=== PATIENT | female | born 1965 | race American Indian/Alaskan Native ===

== ENCOUNTER 2022-03-05 22:57 | Inpatient (IN) | payer MEDICARE, OTHER ==
[2022-03-06] MEDS ORDERED: SODIUM CHLORIDE 0.9% 1000 ML 1,000 ML IV ONE (00:50)
[2022-03-06] MEDS ORDERED: methylPREDNISolone Sod Suc 1,000 MG in SODIUM CHLORIDE 0.9% 250ML 250 ML IV ONE (00:51)
--- NOTE | 2022-03-06 00:57 | Emergency Department Report ---
ED General Adult HPI - General Chief complaint: Medical Clearance Stated complaint: SYNCOPE Time Seen by Provider: 03/06/22 00:41 Source: EMS Mode of arrival: Stretcher Limitations: No Limitations - History of Present Illness Initial comments: 56 yo F with h/o multiple sclerosis brought in by friends and spouse with generalized weakness that started after exertion. Patient [place] [employer] [place] [employer] all day today with a lot of crowds. Patient according to friends and not eating anything today. She was having generalized bilateral leg weakness. No fever or chills reported. According to patient's spouse whenever she has multiple sclerosis flareup she refused to communicate which is exactly what patient is presenting with at this point. No other modifying or associated factors reported. - Related Data Allergies Allergy/AdvReac Type Severity Reaction Status Date / Time Unable to Assess Allergy Verified 03/06/22 00:53 ED Review of Systems ROS: Stated complaint: SYNCOPE Other details as noted in HPI Comment: All other systems reviewed and negative Constitutional: weakness Cardiovascular: syncope ED Past Medical Hx - Past Medical History Previous Medical History?: Yes Additional medical history: MULTIPLE SCLEROSIS - Surgical History Past Surgical History?: No - Social History Smoking Status: Unknown if ever smoked ED Physical Exam - General Limitations: No Limitations General appearance: alert, in no apparent distress - Head Head exam: Present: atraumatic, normal inspection - Eye Eye exam: Present: normal appearance Pupils: Present: normal accommodation - ENT ENT exam: Present: normal exam, normal orophraynx, mucous membranes dry - Neck Neck exam: Present: normal inspection, full ROM. Absent: tenderness - Respiratory Respiratory exam: Present: normal lung sounds bilaterally. Absent: respiratory distress, accessory muscle use - Cardiovascular Cardiovascular Exam: Present: regular rate, normal rhythm, normal heart sounds - GI/Abdominal GI/Abdominal exam: Present: soft, normal bowel sounds. Absent: distended, tenderness - Extremities Exam Extremities exam: Present: normal inspection, normal capillary refill. Absent: tenderness, pedal edema - Back Exam Back exam: Absent: tenderness - Neurological Exam Neurological exam: Present: alert, oriented X3 - Psychiatric Psychiatric exam: Present: normal affect, normal mood - Skin Skin exam: Present: warm, normal color ED Course Vital Signs 03/05/22 23:43 Temperature 98.1 F Pulse Rate 71 Respiratory 16 Rate Blood Pressure 140/91 O2 Sat by Pulse 100 Oximetry ED Medical Decision Making - Lab Data Result diagrams: 03/06/22 01:47 03/06/22 01:47 - Medical Decision Making Here with generalized weakness--with history of multiple sclerosis we will go ahead and order routine labs including CBC, CMP, urinalysis, urine drug screen and thyroid panel for any electrolyte derangement or infectious process In the meantime while waiting for the above labs we will go ahead and hydrate with IV fluids normal saline 1 L bolus and 1 g of Medrol steroids to start treating multiple sclerosis flareup. Lab reviewed with no sign of infectious process-- but since this patient is sym ptomatic such as not been able to walk-- and might needs several days of high steroid treatment admission is considered. Dr Birmingham consulted who accept pt for further evaluation and treatment Critical care attestation.: If time is entered above; I have spent that time in minutes in the direct care of this critically ill patient, excluding procedure time. ED Disposition Clinical Impression: Generalized muscle weakness, Multiple sclerosis Disposition: ADMITTED INPATIENT Is pt being admited?: Yes Does the pt Need Aspirin: No Condition: Stable Referrals: PRIMARY CARE, [Primary Care Provider] - 3-5 Days Time of Disposition: 03:20
[2022-03-06 02:23] LABS: Basophils % (Auto) 0.4 % (0.0-1.8); Eosinophils # (Auto) 0.2 K/mm3 (0.0-0.4); Eosinophils % (Auto) 4.7 % (0.0-4.3); Hematocrit 36.8 % (30.3-42.9); Hemoglobin 11.9 gm/dl (10.1-14.3); Lymphocytes # (Auto) 1.7 K/mm3 (1.2-5.4); Lymphocytes % (Auto) 31.9 % (13.4-35.0); Mean Corpuscular HGB Conc 32 % (30-34); Mean Corpuscular Volume 88 fl (79-97); Monocytes # (Auto) 0.3 K/mm3 (0.0-0.8); Monocytes % (Auto) 5.9 % (0.0-7.3); Platelet Count 193 K/mm3 (140-440); Red Blood Count 4.18 M/mm3 (3.65-5.03); Red Cell Distribution Width 12.6 % (13.2-15.2)
[2022-03-06 02:29] LABS: INR 0.9 (0.87-1.13)
[2022-03-06 02:30] LABS: Partial Thromboplastin Time 31.2 Sec. (24.2-36.6)
[2022-03-06 02:41] LABS: Alanine Aminotransferase 11 units/L (7-56); Albumin 3.7 g/dL (3.9-5); Blood Urea Nitrogen 8 mg/dL (7-17); Calcium 9.1 mg/dL (8.4-10.2); Hemolysis Index 3
[2022-03-06 02:51] LABS: Free T4 (Free Thyroxine) 1.14 ng/dL (0.76-1.46)
[2022-03-06 02:54] LABS: BUN/Creatinine Ratio 13
[2022-03-06] MEDS ORDERED: ACETAMINOPHEN 325 MG TAB PO PRN ×2 (03:21→05:32)
[2022-03-06] MEDS ORDERED: ONDANSETRON 4 MG/2 ML INJ IV PRN ×2 (03:21→05:32)
[2022-03-06] MEDS ORDERED: MORPHINE 2 MG/1 ML INJ IV PRN ×2 (03:21→05:32)
[2022-03-06] MEDS ORDERED: MORPHINE 4 MG/1 ML INJ IV PRN (05:32)
[2022-03-06] MEDS ORDERED: ALBUTEROL 2.5 MG/3 ML NEBU IH PRN (05:32)
--- NOTE | 2022-03-06 05:38 | History and Physical Report ---
History of Present Illness Date of examination: 03/06/22 Date of admission: 03/06/22 03:21 Chief complaint: Generalized muscle weakness History of present illness: 56 yo F with h/o multiple sclerosis brought in by friends and spouse with generalized weakness that started after exertion. Patient was [place] [employer] [place] [employer] [place] [employer] all day today with a lot of crowds. Patient according to friends and not eating anything today. She was having generalized bilateral leg weakness. No fever or chills reported. According to patient's spouse whenever she has multiple sclerosis flareup she refused to communicate which is exactly what patient is presenting with at this point. No other modifying or associated factors reported. Lab reviewed with no sign of infectious process-- but since this patient is symptomatic such as not been able to walk-- and might needs several days of high steroid treatment. Giving patient 1 L of fluid bolus and 1 g of Medrol steroid. Neurology evaluation for further treatment. Past History Past Medical History: other (Multiple sclerosis) Past Surgical History: No surgical history Social history: no significant social history Family history: no significant family history Medications and Allergies Allergies Allergy/AdvReac Type Severity Reaction Status Date / Time Unable to Assess Allergy Verified 03/06/22 00:53 Active Meds: Active Medications Acetaminophen (Acetaminophen 325 Mg Tab) 650 mg PO Q4H PRN PRN Reason: Pain MILD(1-3)/Fever >100.5/ARREGUIN Morphine Sulfate (Morphine 2 Mg/1 Ml Inj) 2 mg IV Q4H PRN PRN Reason: Pain, Moderate (4-6) Ondansetron HCl (Ondansetron 4 Mg/2 Ml Inj) 4 mg IV Q8H PRN PRN Reason: Nausea And Vomiting Sodium Chloride (Sodium Chloride 0.9% 10 Ml Flush Syringe) 10 ml IV BID ENRRIQUE Sodium Chloride (Sodium Chloride 0.9% 10 Ml Flush Syringe) 10 ml IV PRN PRN PRN Reason: LINE FLUSH Review of Systems All systems: negative Constitutional: fatigue, weakness, malaise, other (Syncope) Exam - Constitutional Vitals: Temp Pulse Resp BP Pulse Ox 98.1 F 71 16 140/91 100 03/05/22 23:43 03/05/22 23:43 03/05/22 23:43 03/05/22 23:43 03/05/22 23:43 General appearance: Present: no acute distress, well-nourished - EENT Eyes: Present: PERRL ENT: hearing intact, clear oral mucosa - Neck Neck: Present: supple, normal ROM - Respiratory Respiratory effort: normal Respiratory: bilateral: CTA - Cardiovascular Heart Sounds: Present: S1 & S2. Absent: rub, click - Extremities Extremities: pulses symmetrical, No edema Peripheral Pulses: within normal limits - Abdominal General gastrointestinal: Present: soft, non-tender, non-distended, normal bowel sounds Female genitourinary: Present: normal - Integumentary Integumentary: Present: clear, warm, dry - Musculoskeletal Musculoskeletal: gait normal, strength equal bilaterally - Psychiatric Psychiatric: appropriate mood/affect, intact judgment & insight - Neurologic Neurologic: CNII-XII intact, moves all extremities Results - Labs CBC & Chem 7: 03/06/22 01:47 03/06/22 01:47 Labs: Laboratory Last Values WBC 5.3 K/mm3 (4.5-11.0) 03/06/22 01:47 RBC 4.18 M/mm3 (3.65-5.03) 03/06/22 01:47 Hgb 11.9 gm/dl (10.1-14.3) 03/06/22 01:47 Hct 36.8 % (30.3-42.9) 03/06/22 01:47 MCV 88 fl (79-97) 03/06/22 01:47 MCH 28 pg (28-32) 03/06/22 01:47 MCHC 32 % (30-34) 03/06/22 01:47 RDW 12.6 % (13.2-15.2) L 03/06/22 01:47 Plt Count 193 K/mm3 (140-440) 03/06/22 01:47 Lymph % (Auto) 31.9 % (13.4-35.0) 03/06/22 01:47 Pitt % (Auto) 5.9 % (0.0-7.3) 03/06/22 01:47 Eos % (Auto) 4.7 % (0.0-4.3) H 03/06/22 01:47 Baso % (Auto) 0.4 % (0.0-1.8) 03/06/22 01:47 Lymph # (Auto) 1.7 K/mm3 (1.2-5.4) 03/06/22 01:47 Pitt # (Auto) 0.3 K/mm3 (0.0-0.8) 03/06/22 01:47 Eos # (Auto) 0.2 K/mm3 (0.0-0.4) 03/06/22 01:47 Baso # (Auto) 0.0 K/mm3 (0.0-0.1) 03/06/22 01:47 Seg Neutrophils % 57.1 % (40.0-70.0) 03/06/22 01:47 Seg Neutrophils # 3.0 K/mm3 (1.8-7.7) 03/06/22 01:47 PT 13.4 Sec. (12.2-14.9) 03/06/22 01:47 INR 0.90 (0.87-1.13) 03/06/22 01:47 APTT 31.2 Sec. (24.2-36.6) 03/06/22 01:47 Sodium 145 mmol/L (137-145) 03/06/22 01:47 Potassium 3.5 mmol/L (3.6-5.0) L 03/06/22 01:47 Chloride 107.7 mmol/L (98-107) H 03/06/22 01:47 Carbon Dioxide 26 mmol/L (22-30) 03/06/22 01:47 Anion Gap 15 mmol/L 03/06/22 01:47 BUN 8 mg/dL (7-17) 03/06/22 01:47 Creatinine 0.6 mg/dL (0.6-1.2) 03/06/22 01:47 Estimated GFR > 60 ml/min 03/06/22 01:47 BUN/Creatinine Ratio 13 % 03/06/22 01:47 Glucose 91 mg/dL (65-100) 03/06/22 01:47 Calcium 9.1 mg/dL (8.4-10.2) 03/06/22 01:47 Total Bilirubin < 0.20 mg/dL (0.1-1.2) 03/06/22 01:47 AST 14 units/L (5-40) 03/06/22 01:47 ALT 11 units/L (7-56) 03/06/22 01:47 Alkaline Phosphatase 92 units/L (35-129) 03/06/22 01:47 NT-Pro-B Natriuret Pep 56.55 pg/mL (0-900) 03/06/22 01:47 Total Protein 5.5 g/dL (6.3-8.2) L 03/06/22 01:47 Albumin 3.7 g/dL (3.9-5) L 03/06/22 01:47 Albumin/Globulin Ratio 2.1 % 03/06/22 01:47 Lipase 31 units/L (13-60) 03/06/22 01:47 TSH 1.250 mlU/mL (0.270-4.200) 03/06/22 01:47 Free T4 1.14 ng/dL (0.76-1.46) 03/06/22 01:47 Assessment and Plan VTE prophylaxis?: Mechanical Plan of care discussed with patient/family: Yes - Patient Problems (1) Multiple sclerosis Current Visit: Yes Status: Acute Plan to address problem: Admit the patient to the medical floor. Cardiac diet. Normal saline at the rate of 100 cc/h. Patient is given 1 g of Medrol steroid. Neurology evaluation for further evaluation and treatment. (2) Generalized muscle weakness Current Visit: Yes Status: Acute Plan to address problem: Normal saline at the rate of 100 cc/h. Patient is given 1 g of Medrol steroid. Neurology evaluation for further evaluation and treatment. (3) DVT prophylaxis Current Visit: Yes Status: Acute Plan to address problem: SCD for DVT prophylaxis. Pepcid 20 mg p.o. twice daily for GI prophylaxis. Patient is a full code
--- NOTE | 2022-03-06 08:57 | Consultation ---
History of Present Illness Consult date: 03/06/22 Reason for Consult: MS Flare Chief complaint: Weakness History of present illness: 56 yo right-handed female with MS (diagnosed since 2008; currently not on DMT) presents with her typical MS flare of generalized weakness with "slowing down" of her cognitive skills. Triggered by a long walk and a day at the "conference" yesterday. She states that she feels tired everyday and has to go to bed by 6 pm. She cannot think of any triggers per se. Past History Past Medical History: other (Multiple sclerosis) Past Surgical History: No surgical history Social history: no significant social history Family history: no significant family history Medications and Allergies Allergies Allergy/AdvReac Type Severity Reaction Status Date / Time Unable to Assess Allergy Verified 03/06/22 00:53 Active Meds: Active Medications Acetaminophen (Acetaminophen 325 Mg Tab) 650 mg PO Q4H PRN PRN Reason: Pain MILD(1-3)/Fever >100.5/ARREGUIN Albuterol (Albuterol 2.5 Mg/3 Ml Nebu) 2.5 mg IH Q4HRT PRN PRN Reason: Shortness Of Breath Albuterol/Ipratropium (Ipratropium/Albuterol Sulfate 3 Ml Ampul.Neb) 1 ampul IH Q6HRT ENRRIQUE Famotidine (Famotidine 20 Mg Tab) 20 mg PO BID ENRRIQUE Methylprednisolone Sodium Succinate 1,000 mg/ Sodium Chloride 250 mls @ 250 mls/hr IV Q24H [facility] Stop: 03/10/22 09:59 Morphine Sulfate (Morphine 2 Mg/1 Ml Inj) 2 mg IV Q4H PRN PRN Reason: Pain, Moderate (4-6) Morphine Sulfate (Morphine 4 Mg/1 Ml Inj) 4 mg IV Q4H PRN PRN Reason: Pain , Severe (7-10) Ondansetron HCl (Ondansetron 4 Mg/2 Ml Inj) 4 mg IV Q8H PRN PRN Reason: Nausea And Vomiting Sodium Chloride (Sodium Chloride 0.9% 10 Ml Flush Syringe) 10 ml IV BID ENRRIQUE Sodium Chloride (Sodium Chloride 0.9% 10 Ml Flush Syringe) 10 ml IV PRN PRN PRN Reason: LINE FLUSH Review of Systems All systems: negative (as per hpi;) Physical Examination - Vital Signs Vital Signs: Vital Signs Temp Pulse Resp BP Pulse Ox 98.1 F 71 16 140/91 100 03/05/22 23:43 03/05/22 23:43 03/05/22 23:43 03/05/22 23:43 03/05/22 23:43 - Physical Exam Narrative exam: Gen: nad, well-nourished; Head: normocephalic; Eyes: no gaze deviation; no ptosis; ENT: normal vocalization; CVS: warm and well-perfused; Pulm: normal work of breathing; GI: appears non-distended; Ext: no cyanosis appreciated at distal extremities; Skin: no acute rash at distal extremities; Heme: no pathologic ecchymosis appreciated at distal extremities; Neuro: alert, oriented to name, age, month, year, surroundings, no dysarthria, no aphasia, mild psychomotor delay; CN 2 - PERRL, visual david grossly intact, CN 3, 4, 6 - EOMI, CN 5 - facial sensation decreased on the left to light touch, CN 7 - facial movement symmetric, CN 8 - hearing grossly intact, CN 9, 10 - uvula midline, CN 11 symmetric shoulder movement, CN 12 - tongue midline; Motor - bilateral senior games technician 3+/5 strength; at least 4-/5 at aleft and at least 4+/5 at right exts; Sensory - light touch decreased at left arm/leg, Cerebellar - fnf /hts intact, Gait - deferred secondary to fall risk; Results - Laboratory Findings CBC and BMP: 03/06/22 01:47 03/06/22 01:47 Abnormal Lab Findings: Abnormal Labs 03/06/22 03/06/22 01:47 01:47 RDW 12.6 L Eos % (Auto) 4.7 H Potassium 3.5 L Chloride 107.7 H Total Protein 5.5 L Albumin 3.7 L Assessment and Plan 56 yo right-handed female with MS (diagnosed since 2008; currently not on DMT) presents with her typical MS flare of generalized weakness with "slowing down" of her cognitive skills. 1. MS Flare - Solumedrol 250 mg iv q6 x 20 doses total; gi prophylaxis; accuc hecks w/ SSI; mri brain w/ wo contrast; mri c/t spine w/ wo contrast; outpatient f/u with neurology. 2. Left-sided Numbness - pt/ot evaluation/monitoring. 3. Bilateral Greens Keeper Weakness / Paraparesis - MRI C/T Spine w/ wo contrast; pt/ot evaluation / monitoring. 4. Cognitive Slowing / Psychomotor Delay - cognitive therapy via ST. Bala Webster MD Neurology [id number]
[2022-03-06] MEDS: FAMOTIDINE 20 MG TAB PO SCH ×2 (10:20→23:40)
--- NOTE | 2022-03-06 17:45 | Event Note ---
Date: 03/06/22 Patient was evaluated this morning, she was found to be hemodynamically stable. #Multiple sclerosis exacerbation Unremarkable CT head noncontrast. Pending MRI brain, MRI cervical and thoracic spine. Continue IV Solu-Medrol 1 g daily x7 days (or until patient returns back to baseline). Neurology consulted; appreciate recs. Physical therapy and Occupational Therapy consulted; pending recs Continue to monitor. #Mild routine caloric malnutrition Albumin 3.7 Starting dietary supplementation. #Coordination of CARE time: 30 minutes. Total visit time equals 30 or more minutes with greater than 50% spent [id number] on coordination of care and counseling. #Advanced care planning -Disease education conducted, care plan discussed, diagnoses discussed, prognosis discussed, and patient acknowledges understanding with care plan -Time: +30 min
[2022-03-06] MEDS: IPRATROPIUM/ALBUTEROL SULFATE 3 ML AMPUL.NEB IH SCH ×2 (19:44→22:15)
[2022-03-06 21:13] LABS: Color,Urine Yellow (Yellow)
--- NOTE | 2022-03-06 21:13 | Magnetic Resonance Report ---
MRI CERVICAL SPINE WITHOUT AND WITH CONTRAST INDICATION / CLINICAL INFORMATION: ms flare. TECHNIQUE: Multisequence, multiplanar images of the cervical spine were obtained. Contrast dose report: Clairscan: 15 mL administered intravenously. COMPARISON: None available. FINDINGS: POSTOPERATIVE CHANGES: none CRANIOCERVICAL JUNCTION:No significant abnormality. ALIGNMENT: Loss of the normal cervical lordosis is noted. This may be artifact of patient positioning . Otherwise normal alignment is maintained. VERTEBRAE:Normal bone marrow signal is observed throughout the cervical region. CERVICAL INTERVERTEBRAL DISCS:Disc height and signal intensity are normally maintained. VISUALIZED SPINAL CORD: On sagittal STIR imaging cerebral areas of abnormal cord parenchymal signal i ntensity are identified. These are located in the anterior aspect of the spinal cord at the C2 level. More central region of cord hyperintensity lateralizes to the right of the midline at the C3, C4 and C5 levels. These findings indicate the presence of demyelinating disease patient with history of mul tiple sclerosis. There is no associated abnormal contrast enhancement. Levels. [id number] ANALYSIS: C2-3: No significant disc abnormality, spinal canal stenosis, or neural foraminal stenosis. C3-4: A small central and right paracentral disc protrusion flattens the thecal sac slightly without compressing the cord. C4-5: No significant disc abnormality, spinal canal stenosis, or neural foraminal stenosis. C5-6: No significant disc abnormality, spinal canal stenosis, or neural foraminal stenosis. C6-7: No significant disc abnormality, spinal canal stenosis, or neural foraminal stenosis. C7-T1: No significant disc abnormality, spinal canal stenosis, or neural foraminal stenosis. PARASPINAL SOFT TISSUES: No significant abnormality. ADDITIONAL FINDINGS: None. IMPRESSION: 1. Intrinsic cord lesions are identified at the C2 level and at the C3, C4 and C5 levels. Findings ar e consistent with demyelinating disease in this patient with history of multiple sclerosis. 2. Small central and right paracentral disc protrusion C3-4. Signer Name: Feng Corey MD Signed: 03/06/2022 9:09 PM Workstation Name: [id number]
--- NOTE | 2022-03-06 21:16 | Magnetic Resonance Report ---
MRI THORACIC SPINE WITHOUT AND WITH CONTRAST INDICATION / CLINICAL INFORMATION: ms flare. TECHNIQUE: Multisequence, multiplanar images of the thoracic spine were obtained. Contrast dose report: Clairscan: 15 mL administered intravenously. COMPARISON: None available. FINDINGS: ALIGNMENT: Normal alignment is maintained throughout the thoracic region. VERTEBRAE:Normal bone marrow signal intensity is present throughout. There is no indication of compre ssion fracture or other osseous abnormality. THORACIC INTERVERTEBRAL DISCS: Disc height and signal intensity are fairly well preserved throughout the thoracic region. VISUALIZED SPINAL CORD: No intrinsic cord lesions are identified. DEGENERATIVE FINDINGS: No indication of disc herniation, central canal stenosis or neuroforaminal imtiaz rowing. PARASPINAL SOFT TISSUES: No significant abnormality. Contrast administration: Following administration of intravenous contrast material enhancement of nor mal vascular structures is demonstrated. No areas of abnormal contrast enhancement are identified. IMPRESSION: 1. No focal disc herniation, spinal canal stenosis or nerve root compression. Graft 2. No indication of intrinsic cord lesion in the thoracic region. Signer Name: Feng Corey MD Signed: 03/06/2022 9:11 PM Workstation Name: [id number]
[2022-03-06 21:21] LABS: Amphetamine Screen,Urine Negative; Benzodiazepines Screen,Urine Negative; Cannabinoid Screen,Urine Negative; Cocaine Screen,Urine Negative; Methadone Screen,Urine Negative; Opiate Screen,Urine Negative
--- NOTE | 2022-03-06 21:23 | Magnetic Resonance Report ---
MRI BRAIN WITHOUT AND WITH CONTRAST INDICATION / CLINICAL INFORMATION: MS Flare. For syncopal episode. TECHNIQUE: Multiplanar, multisequence MR images of the brain were obtained. Contrast: Clairscan: 15 ml, administered intravenously. COMPARISON: None available. FINDINGS: BRAIN / INTRACRANIAL CONTENTS: Ventricles and cortical sulci are normal in size and configuration. Th ere is no mass effect. No evidence of intracranial hemorrhage or extra-axial fluid collection is seen . There is a rind of periventricular hyperintensity. Additionally noted are more focal areas of abnor mal brain parenchymal signal intensity. Several these are in a perivenular orientation, typical for d emyelinating lesions of multiple sclerosis.. No additional areas of abnormal brain parenchymal signal intensity are identified. There is no indication of remote cortical infarction. Diffusion weighted s cans are negative. There is no indication of acute ischemic injury. The brainstem has an unremarkable appearance. Moderate cerebellar atrophy is noted. MIDLINE STRUCTURES:No abnormalities are seen to involve the pituitary gland. Pineal region has an unr emarkable appearance. CRANIOCERVICAL JUNCTION: No abnormalities are identified at the craniocervical junction. VASCULAR FLOW-VOIDS: Normal flow-voids are present within the major intracranial vessels. ORBITS: The orbits have an unremarkable appearance. SINUSES / MASTOIDS: Inflammatory mucosal disease is present at the base of both maxillary sinuses, ri ght worse than left. Paranasal sinuses otherwise appear clear. Mastoid air cells are unremarkable alireza earance. Following the administration of intravenous contrast enhancement of normal vascular structures is dem onstrated. No areas of abnormal contrast enhancement are identified. None of the presumed demyelinati ng lesions are associated with abnormal contrast enhancement. IMPRESSION: 1. White matter disease as described in detail above consistent with the patient's known diagnosis of multiple sclerosis. There are no enhancing lesions to suggest the presence of active demyelinating p laques. Signer Name: Feng Corey MD Signed: 03/06/2022 9:18 PM Workstation Name: [id number]
[2022-03-06 21:32] LABS: Bacteria,Urine 1+ /HPF (Negative); Mucus,Urine 3+ /HPF
[2022-03-07] MEDS: IPRATROPIUM/ALBUTEROL SULFATE 3 ML AMPUL.NEB IH SCH ×3 (03:39→16:18)
[2022-03-07 05:24] LABS: Basophils % (Auto) 0.1 % (0.0-1.8); Hematocrit 42.3 % (30.3-42.9); Hemoglobin 13.8 gm/dl (10.1-14.3); Lymphocytes # (Auto) 0.9 K/mm3 (1.2-5.4); Mean Corpuscular HGB Conc 33 % (30-34); Mean Corpuscular Volume 89 fl (79-97); Monocytes # (Auto) 0.2 K/mm3 (0.0-0.8); Monocytes % (Auto) 1.9 % (0.0-7.3); Platelet Count 207 K/mm3 (140-440); Red Blood Count 4.73 M/mm3 (3.65-5.03); Red Cell Distribution Width 12.5 % (13.2-15.2)
[2022-03-07 05:44] LABS: BUN/Creatinine Ratio 15; Blood Urea Nitrogen 12 mg/dL (7-17); Hemolysis Index 10
[2022-03-07] MEDS ORDERED: methylPREDNISolone Sod Suc 1,000 MG in SODIUM CHLORIDE 0.9% 250ML 250 ML IV SCH (09:00)
[2022-03-07] MEDS ORDERED: MORPHINE 4 MG/1 ML INJ IV PRN (09:03)
[2022-03-07] MEDS: IBUPROFEN 800 MG TAB PO SCH ×2 (10:24→17:40)
[2022-03-07] MEDS: FAMOTIDINE 20 MG TAB PO SCH ×2 (10:24→21:06)
[2022-03-07] MEDS: METHYLPREDNISOLONE SOD SUC IV SCH ×2 (13:41→17:52)
[2022-03-07] MEDS: SODIUM CHLORIDE 0.9% IV SCH ×2 (13:41→17:52)
--- NOTE | 2022-03-07 14:07 | Progress Note ---
Assessment and Plan Assessment and plan: #Multiple sclerosis exacerbation Unremarkable CT head noncontrast. Pending MRI brain, MRI cervical and thoracic spine. Continue IV methylprednisolone 250 mg every 6 hours x20 doses (or until patient returns back to baseline). Neurology consulted; appreciate recs. Physical therapy and Occupational Therapy consulted; pending recs Continue to monitor. #Mild routine caloric malnutrition Albumin 3.7 Starting dietary supplementation. #Advanced care planning -Disease education conducted, care plan discussed, diagnoses discussed, prognosis discussed, and patient acknowledges understanding with care plan -Time: +30 min Disposition Plan: Continue medical management Total Time Spent with Patient (Minutes): 45 minutes History Interval history: No acute events overnight. Hospitalist Physical - Constitutional Vitals: Temp Pulse Resp BP Pulse Ox 98.8 F 67 16 114/69 98 03/07/22 08:20 03/07/22 10:25 03/07/22 10:25 03/07/22 08:20 03/07/22 08:20 General appearance: Present: no acute distress, well-nourished - EENT Eyes: Present: PERRL, EOM intact ENT: hearing intact, clear oral mucosa, dentition normal - Neck Neck: Present: supple, normal ROM - Respiratory Respiratory effort: normal Respiratory: bilateral: CTA - Cardiovascular Rhythm: regular Heart Sounds: Present: S1 & S2 - Extremities Extremities: no ischemia, pulses intact, pulses symmetrical, No edema, normal temperature, normal color Peripheral Pulses: within normal limits - Abdominal General gastrointestinal: soft, non-tender, non-distended, normal bowel sounds - Integumentary Integumentary: Present: clear, warm, dry - Psychiatric Psychiatric: appropriate mood/affect, intact judgment & insight, memory intact, cooperative - Neurologic Neurologic: CNII-XII intact, moves all extremities, other (4/5 strength of left lower extremity) - Allied Health Allied health notes reviewed: nursing Results - Labs CBC & Chem 7: 03/07/22 04:50 03/07/22 04:00 Labs: Laboratory Last Values WBC 10.1 K/mm3 (4.5-11.0) 03/07/22 04:50 RBC 4.73 M/mm3 (3.65-5.03) 03/07/22 04:50 Hgb 13.8 gm/dl (10.1-14.3) 03/07/22 04:50 Hct 42.3 % (30.3-42.9) 03/07/22 04:50 MCV 89 fl (79-97) 03/07/22 04:50 MCH 29 pg (28-32) 03/07/22 04:50 MCHC 33 % (30-34) 03/07/22 04:50 RDW 12.5 % (13.2-15.2) L 03/07/22 04:50 Plt Count 207 K/mm3 (140-440) 03/07/22 04:50 Lymph % (Auto) 9.0 % (13.4-35.0) L 03/07/22 04:50 [place] % (Auto) 1.9 % (0.0-7.3) 03/07/22 04:50 Eos % (Auto) 0.0 % (0.0-4.3) 03/07/22 04:50 Baso % (Auto) 0.1 % (0.0-1.8) 03/07/22 04:50 Lymph # (Auto) 0.9 K/mm3 (1.2-5.4) L 03/07/22 04:50 [place] # (Auto) 0.2 K/mm3 (0.0-0.8) 03/07/22 04:50 Eos # (Auto) 0.0 K/mm3 (0.0-0.4) 03/07/22 04:50 Baso # (Auto) 0.0 K/mm3 (0.0-0.1) 03/07/22 04:50 Seg Neutrophils % 89.0 % (40.0-70.0) H 03/07/22 04:50 Seg Neutrophils # 9.0 K/mm3 (1.8-7.7) H 03/07/22 04:50 PT 13.4 Sec. (12.2-14.9) 03/06/22 01:47 INR 0.90 (0.87-1.13) 03/06/22 01:47 APTT 31.2 Sec. (24.2-36.6) 03/06/22 01:47 Sodium 142 mmol/L (137-145) 03/07/22 04:00 Potassium 3.9 mmol/L (3.6-5.0) 03/07/22 04:00 Chloride 102.6 mmol/L (98-107) 03/07/22 04:00 Carbon Dioxide 22 mmol/L (22-30) 03/07/22 04:00 Anion Gap 21 mmol/L 03/07/22 04:00 BUN 12 mg/dL (7-17) 03/07/22 04:00 Creatinine 0.8 mg/dL (0.6-1.2) 03/07/22 04:00 Estimated GFR > 60 ml/min 03/07/22 04:00 BUN/Creatinine Ratio 15 % 03/07/22 04:00 Glucose 263 mg/dL (65-100) H 03/07/22 04:00 Calcium 10.0 mg/dL (8.4-10.2) 03/07/22 04:00 Total Bilirubin < 0.20 mg/dL (0.1-1.2) 03/06/22 01:47 AST 14 units/L (5-40) 03/06/22 01:47 ALT 11 units/L (7-56) 03/06/22 01:47 Alkaline Phosphatase 92 units/L (35-129) 03/06/22 01:47 NT-Pro-B Natriuret Pep 56.55 pg/mL (0-900) 03/06/22 01:47 Total Protein 5.5 g/dL (6.3-8.2) L 03/06/22 01:47 Albumin 3.7 g/dL (3.9-5) L 03/06/22 01:47 Albumin/Globulin Ratio 2.1 % 03/06/22 01:47 Lipase 31 units/L (13-60) 03/06/22 01:47 TSH 1.250 mlU/mL (0.270-4.200) 03/06/22 01:47 Free T4 1.14 ng/dL (0.76-1.46) 03/06/22 01:47 Urine Color Yellow (Yellow) 03/06/22 20:53 Urine Turbidity Cloudy (Clear) 03/06/22 20:53 Specific [place] (Man) 1.015 (1.003-1.030) 03/06/22 20:53 Ur Protein (Man) <30 mg dl mg/dL (Negative) 03/06/22 20:53 Ur Ketones (Man) Negative (Negative) 03/06/22 20:53 Ur Nitrite (Man) Negative (Negative) 03/06/22 20:53 Urine Bilirubin (Man) Negative (Negative) 03/06/22 20:53 Urine Ictotest Not Reportable 03/06/22 20:53 Leukocyte Esterase (Man) Negative (Negative) 03/06/22 20:53 Urine WBC (Auto) 11.0 /HPF (0.0-6.0) H 03/06/22 20:53 Urine RBC (Auto) 1.0 /HPF (0.0-6.0) 03/06/22 20:53 U Epithel Cells (Auto) 34.0 /HPF (0-13.0) H 03/06/22 20:53 Urine Bacteria (Auto) 1+ /HPF (Negative) 03/06/22 20:53 Urine RBC (Manual) Negative (Negative) 03/06/22 20:53 Urine Mucus 3+ /HPF 03/06/22 20:53 Urine Opiates Screen Negative 03/06/22 20:53 Urine Methadone Screen Negative 03/06/22 20:53 Ur Barbiturates Screen Negative 03/06/22 20:53 Ur Phencyclidine Scrn Negative 03/06/22 20:53 Ur Amphetamines Screen Negative 03/06/22 20:53 U Benzodiazepines Scrn Negative 03/06/22 20:53 Urine Cocaine Screen Negative 03/06/22 20:53 U Marijuana (THC) Screen Negative 03/06/22 20:53 Drugs of Abuse Note Disclamer 03/06/22 20:53 Active Medications - Current Medications Current Medications: Generic Name Dose Route Start Last Admin Trade Name Freq PRN Reason Stop Dose Admin Acetaminophen 650 mg 03/06/22 05:32 Acetaminophen 325 Mg Tab PO Q4H PRN Pain MILD(1-3)/Fever >100.5/ARREGUIN Hydrocodone Bitart/Acetaminophen 1 each 03/07/22 09:03 Hydrocodone/Acetaminophen 5-325 Mg Tab PO Q6H PRN Pain, Moderate (4-6) Albuterol 2.5 mg 03/06/22 05:32 Albuterol 2.5 Mg/3 Ml Nebu IH Q4HRT PRN Shortness Of Breath Albuterol/Ipratropium 1 ampul 03/06/22 08:00 03/07/22 10:25 Ipratropium/Albuterol Sulfate 3 Ml Ampul.Neb IH 1 ampul Q6HRT ENRRIQUE Administration Famotidine 20 mg 03/06/22 10:00 03/07/22 10:24 Famotidine 20 Mg Tab PO 20 mg BID ENRRIQUE Administration Methylprednisolone Sodium 100 mls @ 200 mls/hr 03/07/22 12:00 03/07/22 13:41 Succinate 250 mg/ Sodium IV 200 mls/hr Chloride Q6HR ENRRIQUE Administration Ibuprofen 800 mg 03/07/22 10:00 03/07/22 10:24 Ibuprofen 800 Mg Tab PO 800 mg Q8H ENRRIQUE Administration Morphine Sulfate 2 mg 03/07/22 09:03 Morphine 4 Mg/1 Ml Inj IV Q4H PRN Pain , Severe (7-10) Ondansetron HCl 4 mg 03/06/22 05:32 Ondansetron 4 Mg/2 Ml Inj IV Q8H PRN Nausea And Vomiting Sodium Chloride 10 ml 03/06/22 10:00 03/07/22 10:24 Sodium Chloride 0.9% 10 Ml Flush Syringe IV 10 ml BID ENRRIQUE Administration Sodium Chloride 10 ml 03/06/22 05:32 Sodium Chloride 0.9% 10 Ml Flush Syringe IV PRN PRN LINE FLUSH
[2022-03-08] MEDS: SODIUM CHLORIDE 0.9% IV SCH ×4 (01:37→17:54)
[2022-03-08] MEDS: METHYLPREDNISOLONE SOD SUC IV SCH ×4 (01:37→17:54)
[2022-03-08] MEDS: HYDROcodone/ACETAMINOPHEN 5-325 MG TAB PO PRN (01:41)
[2022-03-08] MEDS: IBUPROFEN 800 MG TAB PO SCH ×3 (02:56→17:54)
[2022-03-08] MEDS: FAMOTIDINE 20 MG TAB PO SCH ×2 (10:24→21:02)
--- NOTE | 2022-03-08 10:46 | Progress Note ---
Assessment and Plan Assessment and plan: #Multiple sclerosis exacerbation Unremarkable CT head noncontrast. Unremarkable MRI brain, MRI cervical and thoracic spine. Continue IV methylprednisolone 250 mg every 6 hours x20 doses (or until patient returns back to baseline). Neurology consulted; appreciate recs. Physical therapy and Occupational Therapy consulted; pending recs Continue to monitor. #Mild routine caloric malnutrition Albumin 3.7 Continue dietary supplementation. #Advanced care planning -Disease education conducted, care plan discussed, diagnoses discussed, prognosis discussed, and patient acknowledges understanding with care plan -Time: +30 min Disposition Plan: Continue medical management Total Time Spent with Patient (Minutes): 45 min History Interval history: No acute events overnight. Hospitalist Physical - Constitutional Vitals: Temp Pulse Resp BP Pulse Ox 97.7 F 66 18 132/86 100 03/08/22 08:40 03/08/22 08:40 03/08/22 08:40 03/08/22 08:40 03/08/22 08:40 General appearance: Present: no acute distress, well-nourished - EENT Eyes: Present: PERRL, EOM intact ENT: hearing intact, clear oral mucosa, dentition normal - Neck Neck: Present: supple, normal ROM - Respiratory Respiratory effort: normal Respiratory: bilateral: CTA - Cardiovascular Rhythm: regular Heart Sounds: Present: S1 & S2 - Extremities Extremities: no ischemia, pulses intact, pulses symmetrical, No edema, normal temperature, normal color Peripheral Pulses: within normal limits - Abdominal General gastrointestinal: soft, non-tender, non-distended, normal bowel sounds - Integumentary Integumentary: Present: clear, warm, dry - Psychiatric Psychiatric: appropriate mood/affect, intact judgment & insight, memory intact, cooperative - Neurologic Neurologic: CNII-XII intact, moves all extremities - Allied Health Allied health notes reviewed: nursing Results - Labs CBC & Chem 7: 03/07/22 04:50 03/07/22 04:00 Labs: Laboratory Last Values WBC 10.1 K/mm3 (4.5-11.0) 03/07/22 04:50 RBC 4.73 M/mm3 (3.65-5.03) 03/07/22 04:50 Hgb 13.8 gm/dl (10.1-14.3) 03/07/22 04:50 Hct 42.3 % (30.3-42.9) 03/07/22 04:50 MCV 89 fl (79-97) 03/07/22 04:50 MCH 29 pg (28-32) 03/07/22 04:50 MCHC 33 % (30-34) 03/07/22 04:50 RDW 12.5 % (13.2-15.2) L 03/07/22 04:50 Plt Count 207 K/mm3 (140-440) 03/07/22 04:50 Lymph % (Auto) 9.0 % (13.4-35.0) L 03/07/22 04:50 [place] % (Auto) 1.9 % (0.0-7.3) 03/07/22 04:50 Eos % (Auto) 0.0 % (0.0-4.3) 03/07/22 04:50 Baso % (Auto) 0.1 % (0.0-1.8) 03/07/22 04:50 Lymph # (Auto) 0.9 K/mm3 (1.2-5.4) L 03/07/22 04:50 [place] # (Auto) 0.2 K/mm3 (0.0-0.8) 03/07/22 04:50 Eos # (Auto) 0.0 K/mm3 (0.0-0.4) 03/07/22 04:50 Baso # (Auto) 0.0 K/mm3 (0.0-0.1) 03/07/22 04:50 Seg Neutrophils % 89.0 % (40.0-70.0) H 03/07/22 04:50 Seg Neutrophils # 9.0 K/mm3 (1.8-7.7) H 03/07/22 04:50 PT 13.4 Sec. (12.2-14.9) 03/06/22 01:47 INR 0.90 (0.87-1.13) 03/06/22 01:47 APTT 31.2 Sec. (24.2-36.6) 03/06/22 01:47 Sodium 142 mmol/L (137-145) 03/07/22 04:00 Potassium 3.9 mmol/L (3.6-5.0) 03/07/22 04:00 Chloride 102.6 mmol/L (98-107) 03/07/22 04:00 Carbon Dioxide 22 mmol/L (22-30) 03/07/22 04:00 Anion Gap 21 mmol/L 03/07/22 04:00 BUN 12 mg/dL (7-17) 03/07/22 04:00 Creatinine 0.8 mg/dL (0.6-1.2) 03/07/22 04:00 Estimated GFR > 60 ml/min 03/07/22 04:00 BUN/Creatinine Ratio 15 % 03/07/22 04:00 Glucose 263 mg/dL (65-100) H 03/07/22 04:00 Calcium 10.0 mg/dL (8.4-10.2) 03/07/22 04:00 Total Bilirubin < 0.20 mg/dL (0.1-1.2) 03/06/22 01:47 AST 14 units/L (5-40) 03/06/22 01:47 ALT 11 units/L (7-56) 03/06/22 01:47 Alkaline Phosphatase 92 units/L (35-129) 03/06/22 01:47 NT-Pro-B Natriuret Pep 56.55 pg/mL (0-900) 03/06/22 01:47 Total Protein 5.5 g/dL (6.3-8.2) L 03/06/22 01:47 Albumin 3.7 g/dL (3.9-5) L 03/06/22 01:47 Albumin/Globulin Ratio 2.1 % 03/06/22 01:47 Lipase 31 units/L (13-60) 03/06/22 01:47 TSH 1.250 mlU/mL (0.270-4.200) 03/06/22 01:47 Free T4 1.14 ng/dL (0.76-1.46) 03/06/22 01:47 Urine Color Yellow (Yellow) 03/06/22 20:53 Urine Turbidity Cloudy (Clear) 03/06/22 20:53 Specific [place] (Man) 1.015 (1.003-1.030) 03/06/22 20:53 Ur Protein (Man) <30 mg dl mg/dL (Negative) 03/06/22 20:53 Ur Ketones (Man) Negative (Negative) 03/06/22 20:53 Ur Nitrite (Man) Negative (Negative) 03/06/22 20:53 Urine Bilirubin (Man) Negative (Negative) 03/06/22 20:53 Urine Ictotest Not Reportable 03/06/22 20:53 Leukocyte Esterase (Man) Negative (Negative) 03/06/22 20:53 Urine WBC (Auto) 11.0 /HPF (0.0-6.0) H 03/06/22 20:53 Urine RBC (Auto) 1.0 /HPF (0.0-6.0) 03/06/22 20:53 U Epithel Cells (Auto) 34.0 /HPF (0-13.0) H 03/06/22 20:53 Urine Bacteria (Auto) 1+ /HPF (Negative) 03/06/22 20:53 Urine RBC (Manual) Negative (Negative) 03/06/22 20:53 Urine Mucus 3+ /HPF 03/06/22 20:53 Urine Opiates Screen Negative 03/06/22 20:53 Urine Methadone Screen Negative 03/06/22 20:53 Ur Barbiturates Screen Negative 03/06/22 20:53 Ur Phencyclidine Scrn Negative 03/06/22 20:53 Ur Amphetamines Screen Negative 03/06/22 20:53 U Benzodiazepines Scrn Negative 03/06/22 20:53 Urine Cocaine Screen Negative 03/06/22 20:53 U Marijuana (THC) Screen Negative 03/06/22 20:53 Drugs of Abuse Note Disclamer 03/06/22 20:53 [place]/IV: Voiding Method Toilet Active Medications - Current Medications Current Medications: Generic Name Dose Route Start Last Admin Trade Name Freq PRN Reason Stop Dose Admin Acetaminophen 650 mg 03/06/22 05:32 Acetaminophen 325 Mg Tab PO Q4H PRN Pain MILD(1-3)/Fever >100.5/ARREGUIN Hydrocodone Bitart/Acetaminophen 1 each 03/07/22 09:03 03/08/22 01:41 Hydrocodone/Acetaminophen 5-325 Mg Tab PO 1 each Q6H PRN Administration Pain, Moderate (4-6) Albuterol 2.5 mg 03/06/22 05:32 Albuterol 2.5 Mg/3 Ml Nebu IH Q4HRT PRN Shortness Of Breath Famotidine 20 mg 03/06/22 10:00 03/08/22 10:24 Famotidine 20 Mg Tab PO 20 mg BID ENRRIQUE Administration Methylprednisolone Sodium 100 mls @ 200 mls/hr 03/07/22 12:00 03/08/22 08:01 Succinate 250 mg/ Sodium IV 200 mls/hr Chloride Q6HR ENRRIQUE Administration Ibuprofen 800 mg 03/07/22 10:00 03/08/22 10:24 Ibuprofen 800 Mg Tab PO 800 mg Q8H ENRRIQUE Administration Morphine Sulfate 2 mg 03/07/22 09:03 Morphine 4 Mg/1 Ml Inj IV Q4H PRN Pain , Severe (7-10) Ondansetron HCl 4 mg 03/06/22 05:32 Ondansetron 4 Mg/2 Ml Inj IV Q8H PRN Nausea And Vomiting Sodium Chloride 10 ml 03/06/22 10:00 03/08/22 10:24 Sodium Chloride 0.9% 10 Ml Flush Syringe IV 10 ml BID ENRRIQUE Administration Sodium Chloride 10 ml 03/06/22 05:32 Sodium Chloride 0.9% 10 Ml Flush Syringe IV PRN PRN LINE FLUSH
[2022-03-09] MEDS: METHYLPREDNISOLONE SOD SUC IV SCH ×4 (00:55→17:13)
[2022-03-09] MEDS: SODIUM CHLORIDE 0.9% IV SCH ×4 (00:55→17:13)
[2022-03-09] MEDS: IBUPROFEN 800 MG TAB PO SCH ×3 (01:00→17:13)
[2022-03-09] MEDS: FAMOTIDINE 20 MG TAB PO SCH ×2 (10:01→21:15)
[2022-03-09] MEDS: HYDROcodone/ACETAMINOPHEN 5-325 MG TAB PO PRN (10:01)
--- NOTE | 2022-03-09 15:03 | Discharge Summary ---
Providers - Providers Date of Admission: 03/06/22 03:21 Date of discharge: 03/09/22 Attending physician: BROOKE CLARKE MD 03/06/22 05:32 Consult to Physician [CONS] Routine Comment: Consulting Provider: YEMI TURNER Physician Instructions: Reason For Exam: Multiple sclerosis 03/09/22 14:33 Physical Therapy Evaluation and Treat [CONS] Stat Reason For Exam: Multiple sclerosis exacerbation Comment: Primary care physician: [employer] Hospitalization Reason for admission: Multiple sclerosis exacerbation Condition: Stable Pertinent studies: Reviewed. Procedures: None. Hospital course: Patient is a 56-year-old female with past medical history of multiple sclerosis who presented to the ED with generalized weakness and severe exertion after collapsing earlier in the day. Patient endorses not consuming much p.o. intake due to her busy schedule that day. The patient's spouse described her as having significantly decreased communication when she is experiencing her multiple sclerosis exacerbation, and thus the presentation that the patient was in upon arrival. In the ED, the patient was found to be hemodynamically stable, and her labs were remarkable for potassium 3.5 and chloride 108. Patient underwent CT head noncontrast that was found to be unremarkable. Patient also underwent MRI brain without contrast, MRI cervical spine with and without contrast, and MRI thoracic spine with and without that were found to be unremarkable. The cervical and thoracic spine MRIs did not reveal lesion suggestive of worsening MS. Neurology was consulted for further management. Patient was started on IV Solu-Medrol 250 mg every 6 hours with improvement in clinical status. The patient was encouraged to follow-up with her neurologist concerning maintenance therapy, and the patient expresses understanding. Patient is medically clear for discharge. Disposition: 01 HOME / SELF CARE / HOMELESS Final Discharge Diagnosis (Prints w/discharge instructions): Multiple sclerosis exacerbation, mild protein caloric malnutrition, hypokalemia Time spent for discharge: 45 min Core Measure Documentation - Palliative Care Palliative Care/ Comfort Measures: Not Applicable - Core Measures Any of the following diagnoses?: none Exam - Constitutional Vitals: Temp Pulse Resp BP Pulse Ox 98.8 F 76 14 119/66 98 03/09/22 08:15 03/09/22 08:15 03/09/22 10:02 03/09/22 08:15 03/09/22 10:00 General appearance: Present: no acute distress, well-nourished - EENT Eyes: Present: PERRL, EOM intact ENT: hearing intact, clear oral mucosa, dentition normal - Neck Neck: Present: supple, normal ROM - Respiratory Respiratory effort: normal Respiratory: bilateral: CTA - Cardiovascular Rhythm: regular Heart Sounds: Present: S1 & S2 - Extremities Extremities: no ischemia, pulses intact, pulses symmetrical, No edema, normal temperature, normal color Peripheral Pulses: within normal limits - Abdominal General gastrointestinal: Present: soft, non-tender, non-distended, normal bowel sounds Female genitourinary: Present: deferred - Rectal Rectal Exam: deferred - Integumentary Integumentary: Present: clear, warm, dry - Musculoskeletal Musculoskeletal: right sided weakness - Psychiatric Psychiatric: appropriate mood/affect, intact judgment & insight, memory intact, cooperative - Neurologic Neurologic: CNII-XII intact, moves all extremities - Allied Health Allied health notes reviewed: nursing Plan Activity: advance as tolerated Diet: regular Additional Instructions: Patient is a 56-year-old female with past medical history of multiple sclerosis who presented to the ED with generalized weakness and severe exertion after collapsing earlier in the day. Patient endorses not consuming much p.o. intake due to her busy schedule that day. The patient's spouse described her as having significantly decreased communication when she is experiencing her multiple sclerosis exacerbation, and thus the presentation that the patient was in upon arrival. In the ED, the patient was found to be hemodynamically stable, and her labs were remarkable for potassium 3.5 and chloride 108. Patient underwent CT head noncontrast that was found to be unremarkable. Patient also underwent MRI brain without contrast, MRI cervical spine with and without contrast, and MRI thoracic spine with and without that were found to be unremarkable. The cervical and thoracic spine MRIs did not reveal lesion suggestive of worsening MS. Neurology was consulted for further management. Patient was started on IV Solu-Medrol 250 mg every 6 hours with improvement in clinical status. The patient was encouraged to follow-up with her neurologist concerning maintenance therapy, and the patient expresses understanding. Patient is medically clear for discharge. Care Plan Goals: She is medically clear for discharge. Assessment: Patient is a 56-year-old female with past medical history of multiple sclerosis who presented to the ED with generalized weakness and severe exertion after collapsing earlier in the day. Patient endorses not consuming much p.o. intake due to her busy schedule that day. The patient's spouse described her as having significantly decreased communication when she is experiencing her multiple sclerosis exacerbation, and thus the presentation that the patient was in upon arrival. In the ED, the patient was found to be hemodynamically stable, and her labs were remarkable for potassium 3.5 and chloride 108. Patient underwent CT head noncontrast that was found to be unremarkable. Patient also underwent MRI brain without contrast, MRI cervical spine with and without contrast, and MRI thoracic spine with and without that were found to be unremarkable. The cervical and thoracic spine MRIs did not reveal lesion suggestive of worsening MS. Neurology was consulted for further management. Patient was started on IV Solu-Medrol 250 mg every 6 hours with improvement in clinical status. The patient was encouraged to follow-up with her neurologist concerning maintenance therapy, and the patient expresses understanding. Patient is medically clear for discharge. Follow up with: PRIMARY CAREMD [Primary Care Provider] - 3-5 Days Prescriptions: predniSONE [Deltasone] 50 mg PO QDAY #40 tab
[2022-03-10] MEDS: METHYLPREDNISOLONE SOD SUC IV SCH ×3 (00:02→12:30)
[2022-03-10] MEDS: SODIUM CHLORIDE 0.9% IV SCH ×3 (00:02→12:30)
[2022-03-10] MEDS: IBUPROFEN 800 MG TAB PO SCH ×2 (01:45→12:31)
[2022-03-10 11:36] VITALS: BP 159/89
[2022-03-10] MEDS: FAMOTIDINE 20 MG TAB PO SCH (12:31)
== END 2022-03-10 14:58 | disposition home or self-care (01) | DRG 59 ==
LOC: ED 22:57 → 4A 03-06 03:21
PROVIDERS: ADMIT Hospitalist; ATTEND Student in an Organized Health Care Education/Training Program
DX: G35 Multiple sclerosis (principal); E44.1 Mild protein-calorie malnutrition; Z68.28 Body mass index [BMI] 28.0-28.9, adult; E87.6 Hypokalemia
CPT/HCPCS: 36415; 70553; 72156; 72157; 80048; 80053; 80307; 81001; 83690; 83880; 84439; 84443; 85025; 85610; 85730; 87086; 94640; 99285; G0378; A9575; J2270; J2930; J7050